=== PATIENT | male | born 2000 | race Caucasian/White ===

== ENCOUNTER 2022-12-25 13:15 | Emergency (ER) | payer SELFPAY ==
[2022-12-25] MEDS ORDERED: Acetaminophen 500 MG TAB ONE (13:57)
[2022-12-25] MEDS ORDERED: Ibuprofen 200 MG TAB ONE (13:57)
[2022-12-25 16:38] LABS: MONO NEGATIVE CONTROL ZONE White (Negative) (White); MONO POSITIVE CONTROL Pink Line (Positive) (PINK/RED); Mononucleosis NEGATIVE (NEGATIVE)
== END 2022-12-25 16:50 | disposition home or self-care (01) ==
LOC: ERS 13:15
DX: J03.90 Acute tonsillitis, unspecified (principal); F17.290 Nicotine dependence, other tobacco product, uncomplicated
CPT/HCPCS: 36415; 86308; 87081; 87430; 99283